=== PATIENT | female | born 1965 | race Two or more races ===

== ENCOUNTER 2020-10-12 17:32 | Inpatient (IN) | payer OTHER ==
[~2020-10-12] VITALS: Ht 160 cm; Wt 82.2 kg
--- NOTE | 2020-10-12 18:13 | PHYS DOC ---
Past Medical History Past Medical History: Arthritis, High Cholesterol Additional Past Medical Histor: bradycardia Past Surgical History: Hysterectomy, Pacemaker Additional Past Surgical Histo: partial hysterectomy Smoking Status: Never Smoker Alcohol Use: None Drug Use: None General Adult EDM: Chief Complaint: CHEST PAIN HPI: HPI: Patient is a 55 year old female who presents with last night began having first of breath with mid to left-sided chest pain that radiates through her back that is a sharp stabbing type pain that she rates at a 4 out of 10. She states her symptoms are worse when she is up and moving. She states that she also get the dizziness when she is up and moving. She states she has been taking aspirin 325 mg. She states yesterday she vomited. She states she also had cold sweats. She states that she just feels weak all over. She denies fever, abdominal pain, headache, syncope, fever, cough, numbness or tingling, focal weakness, vision changes. Review of Systems: Review of Systems: Constitutional: Denies fever or chills. [] Eyes: Denies change in visual acuity. [] HENT: Denies nasal congestion or sore throat. [] Respiratory: Denies cough. + shortness of breath. [] Cardiovascular: + Mid to left-sided chest pain or denies edema. [] GI: Denies abdominal pain. + nausea, +vomiting, denies bloody stools or diarrhea. [] : Denies dysuria. [] Musculoskeletal: Denies back pain or joint pain.+ Generalized weakness [] Integument: Denies rash. + Cold sweats [] Neurologic: + Dizziness, denies headache, focal weakness or sensory changes. [] Endocrine: Denies polyuria or polydipsia. [] Lymphatic: Denies swollen glands. [] Psychiatric: Denies depression or anxiety. [] Heart Score: HEART Score for Chest Pain: HEART Score for Chest Pain Response (Comments) Value History Slighlty/Non-Suspicious 0 ECG Nonspecific Repolarizatio 1 Age >45 - < 65 1 Risk Factors 1 or 2 Risk Factors 1 Troponin < Normal Limit 0 Total 3 Risk Factors: Risk Factors: DM, Current or recent (<one month) smoker, HTN, HLP, family history of CAD, obesity. Risk Scores: Score 0 - 3: 2.5% MACE over next 6 weeks - Discharge Home Score 4 - 6: 20.3% MACE over next 6 weeks - Admit for Clinical Observation Score 7 - 10: 72.7% MACE over next 6 weeks - Early Invasive Strategies Allergies: Allergies: Allergies Coded Allergies Type Severity Reaction Last Updated Verified No Known Drug Allergies 07/16/17 No Physical Exam: PE: Constitutional: Well developed, well nourished, no acute distress, non-toxic a ppearance. [] HENT: Normocephalic, atraumatic, bilateral external ears normal, oropharynx moist, no oral exudates, nose normal. [] Eyes: PERRLA, EOMI, conjunctiva normal, no discharge. [] Neck: Normal range of motion, no tenderness, supple, no stridor. [] Cardiovascular: Paced heart rate regular rhythm, no murmur [] Lungs & Thorax: Bilateral breath sounds clear to auscultation [] Abdomen: Bowel sounds normal, soft, no tenderness, no masses, no pulsatile masses. [] Skin: Warm, dry, no erythema, no rash. [] Back: No tenderness, no CVA tenderness. [] Extremities: No tenderness, no cyanosis, no clubbing, ROM intact, no edema. [] Neurologic: Alert and oriented X 3, normal motor function, normal sensory function, no focal deficits noted. [] Psychologic: Affect normal, judgement normal, mood normal. [] EKG: EK and read by Dr. Cesar as paced sinus rhythm and no STEMI. [address] Ashford as paced rhythm and no STEMI. Radiology/Procedures: Radiology/Procedures: [] Impression: [facility] [address] [place], [place] [id number] IMAGING REPORT Signed PATIENT: ESTHER HOYT ACCOUNT: [id number] : 1965 LOCATION: ER AGE: 55 SEX: F EXAM STATUS: REG ER ORD. PHYSICIAN: BERNIE GORMAN APRN REASON: CHEST PAIN PROCEDURE: PORTABLE CHEST 1V XR CHEST 1V Clinical History: Reason: CHEST PAIN / Spl. Instructions: / History: Technique: AP view of the chest was obtained at 10/12/2020 6:49 PM. Comparison: July 16, 2017. Findings: The cardiomediastinal silhouette is normal. The pulmonary vasculature is normal. The lungs and pleural margins are clear. There is left-sided dual-lead pacemaker. Impression: No evidence of an acute cardiopulmonary process. Electronically signed by: Bertha Palmer III, MD (10/12/2020 7:18 PM) [facility] DICTATED and SIGNED BY: BERTHA PALMER III, MD DATE: 10/12/20 [id number] [facility] [address] [place] [address] IMAGING REPORT Signed PATIENT: ESTHER HOYT ACCOUNT: [id number] : 1965 LOCATION: ER AGE: 55 SEX: F EXAM STATUS: REG ER ORD. PHYSICIAN: BERNIE GORMAN APRN REASON: ELEVATED LIVER ENZYMES, SEVERE MID AREA CHEST PAIN PROCEDURE: CT ABD PELV W/ IV CONTRST ONLY CT ABDOMEN+PELVIS W History: Reason: ELEVATED LIVER ENZYMES, SEVERE MID AREA CHEST PAIN / Spl. Instructions: OMNI 300 INJ 75 MLS / History: Comparison: None. Technique: After administration of intravenous contrast, helical CT of the abdomen and pelvis was performed from the lung bases through the ischial tuberosities. Coronal and sagittal reconstructions were obtained. 75 mL of Omnipaque 300 were used. One or more of the following dose reduction techniques were utilized: Automated exposure control (AEC), Adjustment of mA and/or kV according to patient size, Use of iterative reconstruction technique such as ASiR, CT scan done according to ALARA and image gently/image wisely Abdomen Findings: The visualized lung bases are clear. Hepatic steatosis. Cholelithiasis. Pancreas, spleen, and bilateral adrenal g lands are normal. Symmetric renal enhancement. There is no focal renal mass. There is no hydronephrosis. The visualized loops of small bowel are normal. Colonic diverticulosis. There is no evidence of bowel obstruction. Appendix is normal. There is no free fluid. There is no mesenteric or retroperitoneal adenopathy. The abdominal aorta is normal in caliber. Pelvis Findings: Urinary bladder is well-distended. Hysterectomy. No pelvic free fluid. There is no pelvic or inguinal adenopathy. Degenerative changes of the spine. IMPRESSION: 1. No acute findings. 2. Hepatic steatosis. 3. Cholelithiasis. Electronically signed by: Riaz Stokes MD (10/12/2020 7:57 PM) [facility] DICTATED and SIGNED BY: RIAZ STOKES MD DATE: 10/12/20 [id number] 0 Course & Med Decision Making: Course & Med Decision Making Pertinent Labs and Imaging studies reviewed. (See chart for details) See HPI. Alert and oriented x4. Ambulatory with steady gait. No extremity swelling. Skin pink warm and dry. Moving all extremities equally with equal strengths. PERRLA. No nystagmus. Abdomen is soft and nontender. Pain cannot be reproduced with movement or palpation. Left arm blood pressure is 135/82, right arm blood pressure is 134/99. CT shows cholelithiasis. I have ordered an ultrasound for the morning for gallbladder. Patient's troponin has went from 0.031 to 0.037. No changes on EKG. I have called Dr. Ochoa and patient is admitted to the hospital. [] Joie Disclaimer: Joie Disclaimer: This electronic medical record was generated, in whole or in part, using a voice recognition dictation system. Departure Departure Impression: Primary Impression: Chest pain Qualified Codes: R07.9 - Chest pain, unspecified Additional Impression: Cholelithiasis Qualified Codes: K80.20 - Calculus of gallbladder without cholecystitis without obstruction Disposition: 09 ADMITTED INPT THIS HOSP Admitting Physician: Riaz Ochoa Condition: STABLE Referrals: RIAZ OCHOA MD (PCP) Scripts No Active Prescriptions or Reported Meds BERNIE GORMAN RELIGIOUS EDUCATION TEACHER Oct 12, 2020 18:13
[2020-10-12 18:19] LABS: BASO # 0.1 x10^3/uL (0.0-0.2); BASO % 1 % (0-3); EOS # 0.1 x10^3/uL (0.0-0.7); EOS % 2 % (0-3); HEMOGLOBIN 13.4 g/dL (12.0-15.5); LYMPH # 3.4 x10^3/uL (1.0-4.8); LYMPH % 49 % (24-48); MEAN CORPUSCULAR HEMOGLOBIN 30 pg (25-35); MEAN CORPUSCULAR HGB CONC 34 g/dL (31-37); MEAN CORPUSCULAR VOLUME 90 fL (79-100); MONO # 0.5 x10^3/uL (0.0-1.1); MONO % 7 % (0-9); NEUT # 2.8 x10^3/uL (1.8-7.7); NEUT % 41 % (31-73); PLATELET COUNT 246 x10^3/uL (140-400); RED BLOOD COUNT 4.44 x10^6/uL (3.50-5.40); RED CELL DISTRIBUTION WIDTH 13.2 % (11.5-14.5); WHITE BLOOD COUNT 6.9 x10^3/uL (4.0-11.0)
[2020-10-12 18:28] LABS: CALCIUM 9.2 mg/dL (8.5-10.1); CREATININE 0.7 mg/dL (0.6-1.0); GFR 86.2; POTASSIUM 3.7 mmol/L (3.5-5.1)
[2020-10-12] MEDS ORDERED: NITROGLYCERIN SUBLINGUAL 0.4 MG BOTTLE OF 25. SL PRN (18:30)
[2020-10-12] MEDS ORDERED: IV NORMAL SALINE 1000ML BAG 1,000 ML IV ONE (18:30)
[2020-10-12] MEDS ORDERED: FAMOTIDINE 20 MG/2 ML VIAL IVP ONE (18:30)
[2020-10-12 18:34] LABS: ALBUMIN 3.9 g/dL (3.4-5.0); TOTAL BILIRUBIN 0.5 mg/dL (0.2-1.0); TOTAL PROTEIN 7.8 g/dL (6.4-8.2)
[2020-10-12] MEDS ORDERED: IOHEXOL 300 MG/ML 100ML VIAL. IV ONE (19:15)
--- NOTE | 2020-10-12 19:20 | RAD ---
XR CHEST 1V Clinical History: Reason: CHEST PAIN / Spl. Instructions: / History: Technique: AP view of the chest was obtained at 10/12/2020 6:49 PM. Comparison: July 16, 2017. Findings: The cardiomediastinal silhouette is normal. The pulmonary vasculature is normal. The lungs and pleura l margins are clear. There is left-sided dual-lead pacemaker. Impression: No evidence of an acute cardiopulmonary process. Electronically signed by: Tyler Corrales III, MD (10/12/2020 7:18 PM) [facility]
--- NOTE | 2020-10-12 20:00 | RAD ---
CT ABDOMEN+PELVIS W History: Reason: ELEVATED LIVER ENZYMES, SEVERE MID AREA CHEST PAIN / Spl. Instructions: OMNI 300 INJ 75 MLS / History: Comparison: None. Technique: After administration of intravenous contrast, helical CT of the abdomen and pelvis was per formed from the lung bases through the ischial tuberosities. Coronal and sagittal reconstructions wer e obtained. 75 mL of Omnipaque 300 were used. One or more of the following dose reduction techniques were utilized: Automated exposure control (AEC), Adjustment of mA and/or kV according to patient size , Use of iterative reconstruction technique such as ASiR, CT scan done according to ALARA and image g ently/image wisely Abdomen Findings: The visualized lung bases are clear. Hepatic steatosis. Cholelithiasis. Pancreas, spleen, and bilateral adrenal glands are normal. Symmetric renal enhancement. There is no focal renal mass. There is no hydronephrosis. The visualized loops of small bowel are normal. Colonic diverticulosis. There is no evidence of bowel obstruction. Appendix is normal. There is no free fluid. There is no mesenteric or retroperitoneal adenopathy. The abdominal aorta is normal in caliber. Pelvis Findings: Urinary bladder is well-distended. Hysterectomy. No pelvic free fluid. There is no pelvic or inguinal adenopathy. Degenerative changes of the spine. IMPRESSION: 1. No acute findings. 2. Hepatic steatosis. 3. Cholelithiasis. Electronically signed by: Mt Stokes MD (10/12/2020 7:57 PM) [facility]
[2020-10-12] MEDS ORDERED: ONDANSETRON PF 4 MG/2 ML VIAL. IV PRN (22:15)
[2020-10-12 23:58] VITALS: BP 122/83
--- NOTE | 2020-10-13 01:37 | EKG ---
[facility] [address] [place] [address] Test Date: 2020-10-12 Test Time: 17:45:43 Pat Name: ESTHER HOYT Department: Room: Gender: F Industrial Relations Officer: : 1965 Requested By: BERNIE GORMAN Order Number: [id number] Reading MD: Measurements Intervals [place] Rate: 75 P: RI: QRS: -64 QRSD: 184 T: 100 QT: 470 QTc: 528 Interpretive Statements IRREGULAR RHYTHM, NO P-WAVE FOUND ABNORMAL LEFT AXIS DEVIATION NON SPECIFIC INTRAVENTRICULAR BLOCK ABNORMAL ECG RI6.02 No previous ECG available for comparison
[2020-10-13 03:04] VITALS: BP 96/58
[2020-10-13 07:00] VITALS: BP_DIAS 72
--- NOTE | 2020-10-13 08:27 | RAD ---
Right upper quadrant ultrasound 10/13/2020 INDICATION: Right upper quadrant pain. Evaluate gallbladder. Abnormal CT. COMPARISON STUDY: CT abdomen and pelvis, yesterday FINDINGS: Pancreas partially visualized. Visualized pancreas is unremarkable. Visualized aorta and IV C are unremarkable. The liver is enlarged measuring 19 cm longitudinally. Liver demonstrates diffuse increase in echogenicity suggestive of hepatic steatosis. No focal hepatic lesions are identified by ultrasound. The common bile duct is mildly prominent measuring 6 mm in diameter. Right kidney is norm al in appearance measuring 12 cm longitudinally. There is a nonshadowing echogenic focus in the gallb ladder lumen which may represent a polyp common focal wall calcification, or small adherent stone. No pericholecystic fluid is seen. The gallbladder wall measurement was not obtained on provided imaging . Gallbladder wall appears to be nonthickened measuring approximately 2 to 3 mm per the radiologist. IMPRESSION: 1. Possible small adherent stone within the gallbladder lumen versus polyp. The former is favored g iven prior CT findings 2. No evidence of cholecystitis 3. Hepatomegaly and hepatic steatosis Electronically signed by: Sanket Morris MD (10/13/2020 8:25 AM) [id number]
--- NOTE | 2020-10-13 09:24 | PDOC2 ---
KEEGAN IRVIN MANUSCRIPTS ARCHIVIST 10/13/20 0924: CARDIAC CONSULT DATE OF CONSULT Date of Consult DATE: 10/13/20 TIME: 09:14 REASON FOR CONSULT Reason for Consult: chest pain REFERRING PHYSICIAN Referring Physician: Sophy SOURCE Source: Caregiver (granddaughter), Chart review, Patient HISTORY OF PRESENT ILLNESS HISTORY OF PRESENT ILLNESS This is a pleasant 55 yo female admitted for complains of chest pain and abdominal pain. Reports that she started having midsternal eduarda pain which was sharp in consistency which eventually disappears then transition to her left upper abdomen which she thinks she is probably constipated. Her CP has not recurred. Denies any SOA, palpitations. No nausea, vomiting. No prior covid exposure and no anosmia or ageusia. No recent falls or injury. No fever or chills or intractable coughing. Denies any passing out. She has a pacer transmitter but it is not plugged and last time her device was checked was 12/2019. She currently does not take any meds. Denies routine NSAID use. PAST MEDICAL HISTORY Cardiovascular: Hyperlipidemia, Other (SSS) Pulmonary: No pertinent hx Musculoskeletal: Osteoarthritis Rheumatologic: No pertinent hx Infectious disease: No pertinent hx ENT: No pertinent hx Renal/: No pertinent hx Endocrine: No pertinent hx Dermatology: No pertinent hx PAST SURGICAL HISTORY Past Surgical History: Pacemaker, Hysterectomy FAMILY HISTORY Family History: Hypertension SOCIAL HISTORY Smoke: No ALCOHOL: none Drugs: None CURRENT MEDICATIONS CURRENT MEDICATIONS Current Medications Medications (Trade) Dose Ordered Sig/Twin Route PRN Reason Start Time Stop Time Status Last Admin Dose Admin Sodium Chloride 1,000 ml @ 1,000 mls/hr 1X ONCE IV 10/12/20 18:30 10/12/20 19:29 DC 10/12/20 18:46 Nitroglycerin (Nitrostat) 0.4 mg PRN Q5MIN PRN SL CHEST PAIN 10/12/20 18:30 10/12/20 18:46 Famotidine (Pepcid Vial) 20 mg 1X ONCE IVP 10/12/20 18:30 10/12/20 18:33 DC 10/12/20 18:45 Iohexol (Omnipaque 300 Mg/ml) 75 ml 1X ONCE IV 10/12/20 19:15 10/12/20 19:16 DC 10/12/20 19:31 ALLERGIES ALLERGIES: Coded Allergies: No Known Drug Allergies (Unverified , 07/16/17) ROS Review of System 14 point ROS evaluated with pertinent positives noted per HPI PHYSICAL EXAM General: Alert, Oriented X3, Cooperative, No acute distress HEENT: Atraumatic, Mucous membr. moist/pink Lungs: Clear to auscultation, Normal air movement Heart: Regular rate (SR with intermittent V pacing ), Normal S1, Normal S2, Other (2/6 systolic murmur) Abdomen: Soft, No tenderness, Other (obese) Extremities: No cyanosis, No edema Skin: No breakdown, No significant lesion Neuro: Normal speech, Sensation intact Psych/Mental Status: Mental status NL, Mood NL MUSCULOSKELETAL: Osteoarthritic changes both hands VITALS/I&O VITALS/I&O: Vital Signs Date Time Temp Pulse Resp B/P (MAP) Pulse Ox O2 Delivery O2 Flow Rate FiO2 10/13/20 08:00 Room Air 10/13/20 03:04 98.2 64 16 96/58 (71) 100 98.2 I & O 10/12/20 10/12/20 10/13/20 15:00 23:00 07:00 Intake Total 520 ml Balance 520 ml LABS Lab: Laboratory Tests Test 10/12/20 17:56 10/12/20 20:35 10/13/20 00:30 White Blood Count 6.9 x10^3/uL (4.0-11.0) Red Blood Count 4.44 x10^6/uL (3.50-5.40) Hemoglobin 13.4 g/dL (12.0-15.5) Hematocrit 40.0 % (36.0-47.0) Mean Corpuscular Volume 90 fL (79-100) Mean Corpuscular Hemoglobin 30 pg (25-35) Mean Corpuscular Hemoglobin Concent 34 g/dL (31-37) Red Cell Distribution Width 13.2 % (11.5-14.5) Platelet Count 246 x10^3/uL (140-400) Neutrophils (%) (Auto) 41 % (31-73) Lymphocytes (%) (Auto) 49 % (24-48) H Monocytes (%) (Auto) 7 % (0-9) Eosinophils (%) (Auto) 2 % (0-3) Basophils (%) (Auto) 1 % (0-3) Neutrophils # (Auto) 2.8 x10^3/uL (1.8-7.7) Lymphocytes # (Auto) 3.4 x10^3/uL (1.0-4.8) Monocytes # (Auto) 0.5 x10^3/uL (0.0-1.1) Eosinophils # (Auto) 0.1 x10^3/uL (0.0-0.7) Basophils # (Auto) 0.1 x10^3/uL (0.0-0.2) Prothrombin Time 13.0 SEC (11.7-14.0) Prothrombin Time INR 1.0 (0.8-1.1) D-Dimer (Rosalva) 0.43 ug/mlFEU (0.00-0.50) Sodium Level 141 mmol/L (136-145) Potassium Level 3.7 mmol/L (3.5-5.1) Chloride Level 105 mmol/L (98-107) Carbon Dioxide Level 25 mmol/L (21-32) Anion Gap 11 (6-14) Blood Urea Nitrogen 14 mg/dL (7-20) Creatinine 0.7 mg/dL (0.6-1.0) Estimated GFR (Cockcroft-Gault) 86.2 BUN/Creatinine Ratio 20 (6-20) Glucose Level 119 mg/dL (70-99) H Calcium Level 9.2 mg/dL (8.5-10.1) Total Bilirubin 0.5 mg/dL (0.2-1.0) Aspartate Amino Transferase (AST) 170 U/L (15-37) H Alanine Aminotransferase (ALT) 203 U/L (14-59) H Alkaline Phosphatase 107 U/L (46-116) Troponin I Quantitative 0.031 ng/mL (0.000-0.055) 0.037 ng/mL (0.000-0.055) 0.035 ng/mL (0.000-0.055) PM-Htn-S-Type Natriuretic Peptide 722 pg/mL (0-124) H Total Protein 7.8 g/dL (6.4-8.2) Albumin 3.9 g/dL (3.4-5.0) Albumin/Globulin Ratio 1.0 (1.0-1.7) Lipase 118 U/L (73-393) Laboratory Tests 10/12/20 17:56 Laboratory Tests 10/12/20 17:56 ECHOCARDIOGRAM ECHOCARDIOGRAM <Conclusion> Left ventricle systolic function is low normal. The Ejection Fraction is 50%. Tissue Doppler imaging reveals mild left ventricular diastolic dysfunction. Transmitral Doppler flow pattern is Grade I-abnormal relaxation pattern. Doppler and Color Flow revealed trace aortic regurgitation. Mitral annular calcification is mild. Doppler and Color Flow revealed trace to mild tricuspid regurgitation. The PA pressure was estimated at 24 mmHg. Doppler and Color Flow revealed no pulmonic valvular regurgitation. There is no evidence of significant pericardial effusion. DATE: 07/18/171658 ASSESSMENT/PLAN ASSESSMENT/PLAN 1. Atypical chest pain: possibly from GI 2. SSS: intermittent V pacing, no prior device check per chart review. Medtr[employer] placed in 3. Cholelithiasis vs polyp 4. Left sided abdominal pain 5. Mild transaminitis with hepatic steatosis 6. HLP 7. Obesity 8. Metabolic syndrome 9. Subclinical hypothyroidism Recommendations TSH, lipids. A1C start statin. Dietitian consult Baseline TTE PPM is MITA, Generator change tomorrow. Discussed with pt and granddaughter, risks and benefits and agreeable to proceed. JASMYNE LÓPEZ MD 10/13/20 1903: CARDIAC CONSULT ASSESSMENT/PLAN ASSESSMENT/PLAN Patient seen and examined I agree with our nurse practitioners assessment and plan as above Atypical chest pain. No significant elevation in troponin. Continuing medical treatment. History of sick sinus syndrome with a [employer]tron[employer] pacemaker. Interrogation shows device is at [facility]A. We will plan generator change in the morning. Abdominal pain. Mildly improved. Work-up in progress. HLP. Obesity. Hypothyroidism. KEEGAN IRVIN APRN Oct 13, 2020 09:24 JASMYNE LÓPEZ MD Oct 13, 2020 19:03
[2020-10-13 09:50] LABS: CHOLESTEROL/HDL RATIO 4.4
[2020-10-13 11:00] VITALS: BP 113/66
[2020-10-13 15:00] VITALS: BP 132/50
--- NOTE | 2020-10-13 15:32 | NUR ---
SS following for discharge planning. SS reviewed pt chart and discussed with pt RN. Pt is from home and is currently on room air. COVID19 test pending. Pt having pacemaker replaced tomorrow. SS will continue to follow for discharge planning.
--- NOTE | 2020-10-13 17:20 | CARD ---
MR#: [id number] Date of Study: 10/13/2020 Ordering Physician: KEEGAN IRVIN, Referring Physician: KEEGAN IRVIN Tech: Belén Bob [facility] APPROVED REPORT EXAM: Two-dimensional and M-mode echocardiogram with Doppler and color Doppler. Other Information Quality : Good INDICATION Chest Pain SSS-Pacemaker 2D DIMENSIONS RVDd2.2 (2.9-3.5cm)Left Atrium(2D)3.3 (1.6-4.0cm) IVSd1.0 (0.7-1.1cm)Aortic Root(2D)2.9 (2.0-3.7cm) LVDd4.6 (3.9-5.9cm)LVOT Diameter2.2 (1.8-2.4cm) PWd1.1 (0.7-1.1cm)LVDs3.8 (2.5-4.0cm) FS (%) 18.4 %SV37.3 ml Aortic Valve AoV Peak Neptali.142.9cm/sAoV VTI20.6cm AO Peak GR.8.2mmHgLVOT Peak Neptali.87.9cm/s AO Mean GR.4mmHgAVA (VMAX)2.30cm2 ILIANA (VTI)2.44ps0HQ P 1/2 Syxm0260bu Tricuspid Valve TR P. [id number]/sRAP [id number] TR Peak Gr.70geHiQPAY05nlTl LEFT VENTRICLE The left ventricle is normal size. There is normal left ventricular wall thickness. The left ventricu lar systolic function is normal and the ejection fraction is within normal range. The Ejection Fracti on is 55-60%. Apical motion consistent with pacemaker activation. RIGHT VENTRICLE The right ventricle is normal size. The right ventricular systolic function is normal. There are alex ce leads in the right ventricle and atrium ATRIA The left atrium size is normal. The right atrium is mildly dilated. The interatrial septum is intact with no evidence for an atrial septal defect or patent foramen ovale as noted on 2-D or Doppler imagi ng. AORTIC VALVE The aortic valve is normal in structure and function. Doppler and Color Flow revealed trace to mild a ortic regurgitation. There is no significant aortic valvular stenosis. MITRAL VALVE The mitral valve is normal in structure and function. There is no evidence of mitral valve prolapse. There is no mitral valve stenosis. Doppler and Color-flow revealed trace mitral regurgitation. TRICUSPID VALVE The tricuspid valve is normal in structure and function. Doppler and Color Flow revealed mild tricusp id regurgitation. The PA pressure was estimated at 23 mmHg. There is no tricuspid valve stenosis. PULMONIC VALVE The pulmonic valve is not well visualized. Doppler and Color Flow revealed mild pulmonic valvular reg urgitation. There is no pulmonic valvular stenosis. GREAT VESSELS The aortic root is normal in size. The ascending aorta is normal in size. The IVC is normal in size a nd collapses >50% with inspiration. PERICARDIAL EFFUSION There is no evidence of significant pericardial effusion. Critical Notification Critical Value: No <Conclusion> The left ventricle is normal size. The left ventricular systolic function is normal and the ejection fraction is within normal range. The Ejection Fraction is 55-60%. Apical motion consistent with pacemaker activation. There are device leads in the right ventricle and atrium Doppler and Color Flow revealed trace to mild aortic regurgitation. There is no significant aortic valvular stenosis. Doppler and Color-flow revealed trace mitral regurgitation. Doppler and Color Flow revealed mild tricuspid regurgitation. The PA pressure was estimated at 23 mmHg. Signed by : Imtiza Mcqueen MD Electronically Approved : 10/13/2020 17:20:11
--- NOTE | 2020-10-13 17:44 | HP ---
ADMIT DATE: 10/13/2020 CHIEF COMPLAINT AND HISTORY OF PRESENT ILLNESS: This 55-year-old female presented to the office on the day of admission because of chest discomfort. She has 2 daughters present and the best description is that of a squeezing in the chest without any radiation. It was predominantly in the mid chest. It was worse when she would get up and walk around. It was associated with lightheadedness, sweatiness, and some mild shortness of breath. She does have a history of a pacemaker, but no other cardiac history. She was admitted for the same. She did have a CT scanning done in the Emergency Room, which showed cholelithiasis and hepatic steatosis. Troponin was elevated at 0.03 on admission in addition. PAST MEDICAL HISTORY: Remarkable for hyperlipidemia, bradycardia, arthritis. PAST SURGICAL HISTORY: Remarkable for hysterectomy and pacemaker. MEDICATIONS: None at the time of admission. ALLERGIES: She has no known drug allergies. SOCIAL HISTORY: She is a nonsmoker, nondrinker, does not use drugs. , lives at home with her . FAMILY HISTORY: Noncontributory. REVIEW OF SYSTEMS: As mentioned above. PHYSICAL EXAMINATION: GENERAL: She is a well-developed, well-nourished female, in no acute distress, very pleasant. VITAL SIGNS: Stable. She is afebrile. HEAD, EYES, EARS, NOSE AND THROAT: Unremarkable. NECK: Supple. No thyromegaly. CHEST: Clear to auscultation and percussion. HEART: Regular rate and rhythm without S3, S4 or murmur. ABDOMEN: Soft, nontender, without hepatosplenomegaly or masses. EXTREMITIES: Without cyanosis, clubbing, edema. NEUROLOGIC: She is intact. IMPRESSION: 1. Chest pain with mild elevation of troponin, rule out cardiac etiology. 2. Pacemaker, at end of life, on interrogation today, will need to be replaced. 3. Coincidental cholelithiasis and hepatic steatosis. PLAN: The patient has been admitted. Cardiology has been consulted and we will follow their lead as far as further investigation of the troponin and replacement of the pacemaker. RIAZ LAWSON MD DR: DENAE/akhil JOB#: [id number] / [id number]
[2020-10-13 19:50] VITALS: BP 127/59
[2020-10-13 19:51] LABS: BILIRUBIN,URINE NEGATIVE (NEG); CLARITY,URINE CLEAR; COLOR,URINE YELLOW; NITRITE,URINE NEGATIVE (NEG); PROTEIN,URINE NEGATIVE (NEG-TRACE); UROBILINOGEN,URINE 0.2 mg/dL (0.2 mg/dL)
[2020-10-13 19:57] LABS: BACTERIA,URINE 0 /HPF (0-FEW); RBC,URINE RARE /HPF (0-2)
[2020-10-13 19:58] LABS: AMPHETAMINE/METHAMPHETAMINE NEG (NEG); BARBITURATES NEG (NEG); BENZODIAZEPINES NEG (NEG); CANNABINOIDS NEG (NEG); COCAINE NEG (NEG); METHADONE NEG (NEG); OPIATES NEG (NEG); PHENCYCLIDINE NEG (NEG)
[2020-10-13] MEDS: ATORVASTATIN CALCIUM 20 MG TABLET PO SCH (21:41)
[2020-10-13 22:02] VITALS: BP 114/74
[2020-10-14] VITALS (14 sets, daily range): BP systolic 102–137; BP diastolic 67–91
[2020-10-14 03:39] LABS: HEMOGLOBIN A1C 5.6 % (4.8-5.6)
[2020-10-14] MEDS ORDERED: MIDAZOLAM HCL/PF 2 MG/2 ML VIAL. ONE (10:34)
[2020-10-14] MEDS ORDERED: fentaNYL PF VIAL 100 MCG/2 ML VIAL ONE (10:34)
[2020-10-14] MEDS ORDERED: LIDOCAINE 2%/EPI 1:100,000 20 ML VIAL. ONE (10:44)
[2020-10-14] MEDS ORDERED: BACITRACIN 50,000 UNIT in IV NORMAL SALINE 250ML 250 ML IRR ONE (10:45)
--- NOTE | 2020-10-14 10:49 | NUR ---
pt left for procedure at approx 1030.
--- NOTE | 2020-10-14 11:11 | PDOC ---
MODERATE SEDATION ASSESSMENT RISKS/ALTERNATIVES Risks/Alternatives Risks and alternatives of this type of sedation and procedure discussed with: RISK/ALTERNATIVES: Patient H & P ON CHART H & P H & P on chart and reviewed for co-morbid conditions and appropriate labs. H&P ON CHART: Yes STATUS PREG STATUS ASSESSED: N/A MEDS/ALLERGIES REVIEWED Meds/Allergies Reviewed Medications and Allergies including time and route of recently administered narcotics and sedatives. MEDS/ALLERGIES REVIEWED: Yes ASA RATING ASA RATING: II AIRWAY ASSESSMENT Airway Assessment Airway patency, oral function limitations, presence of caps, crowns, dentures, partials, and ability to extend neck assessed. AIRWAY ASSESSMENT: Yes MALLAMPATI SCORE MALLAMPATI SCORE: II PRE-SEDATION ASSESSMENT PRE-SEDATION ASSESSMENT: Yes WOODY BRYANT MD Oct 14, 2020 11:11
[2020-10-14] MEDS ORDERED: LIDOCAINE 2%/EPI 1:100,000 20 ML VIAL. IJ ONE (11:30)
[2020-10-14] MEDS ORDERED: fentaNYL PF VIAL 100 MCG/2 ML VIAL IV ONE (11:30)
[2020-10-14] MEDS ORDERED: MIDAZOLAM HCL/PF 2 MG/2 ML VIAL. IV ONE (11:30)
--- NOTE | 2020-10-14 13:19 | PN ---
DATE: 10/14/2020 SUBJECTIVE: This 55-year-old female remains hospitalized with chest pain and end of life pacemaker found by interrogation. She has had no further symptoms since admission. Daughters are present at the bedside. OBJECTIVE: VITAL SIGNS: Stable. She is afebrile. CHEST: Clear. HEART: Regular. ABDOMEN: Benign. NEUROLOGIC: She is awake and alert. LABORATORY DATA: TSH is mildly elevated and will need to be followed up as an outpatient. IMPRESSION: Chest pain, pacemaker end of life, elevated troponin, subclinical hypothyroidism and hyperlipidemia. PLAN: Await pacemaker replacement with further plans to follow per Cardiology. RIAZ LAWSON MD DR: DENAE/akhil JOB#: [id number] / [id number]
--- NOTE | 2020-10-14 14:10 | NUR ---
SS following up with discharge planning. SS reviewed pt chart and discussed with pt RN. Pt is currently on room air. Pt having pacemaker replaced today. Discharge plan is to home when medically ready. SS will continue to follow for discharge planning.
--- NOTE | 2020-10-14 19:37 | NUR ---
PT RETURNED FROM PROCEDURE AT APPROX 1200. DRESSING CLEAN DRY AND INTACT. PT DENIES PAIN AT THIS TIME. FREQUENTS SET UP AND CHARTED.
[2020-10-14] MEDS: ATORVASTATIN CALCIUM 20 MG TABLET PO SCH (20:54)
[2020-10-15 03:15] VITALS: BP 134/79
[2020-10-15 07:28] VITALS: BP 129/82
[2020-10-15] MEDS: ACETAMINOPHEN 325 MG TABLET. PO PRN ×2 (08:17→18:26)
[2020-10-15 11:00] VITALS: BP 126/79
--- NOTE | 2020-10-15 14:09 | PDOC ---
Provider Note Date of Service: DATE: 10/15/20 TIME: 14:12 Provider Note vss, feels ok- note elevated TAs so will repeayt, ? etiology- no new meds Justifications for Admission Other Justification WILDER MURRY MD Oct 15, 2020 14:09
[2020-10-15 15:04] VITALS: BP 122/74
[2020-10-15 19:40] VITALS: BP 125/83
[2020-10-15] MEDS: ATORVASTATIN CALCIUM 20 MG TABLET PO SCH (21:58)
--- NOTE | 2020-10-15 23:04 | PDOC ---
Provider Note Date of Service: DATE: 10/15/20 TIME: 23:02 Provider Note S: No events overnight. O: Left pacer site is c/d/i no edema. normal heart tones. Meds reviewed. diagnostic tests reviewed. Impression: 1. Pacemaker MITA - successful gen change Recs: 1. F/u in 2 weeks for wound check in office, otherwise, no further CV recs. Pls call with questions. Thanks Justifications for Admission Other Justification JAE KIRBY MD Oct 15, 2020 23:04
[2020-10-15 23:19] VITALS: BP 133/81
[2020-10-16 03:47] VITALS: BP 117/79
[2020-10-16 07:00] VITALS: BP 140/87
[2020-10-16 08:52] LABS: ALBUMIN 3.8 g/dL (3.4-5.0); DIRECT BILIRUBIN 0.1 mg/dL (0.0-0.2); TOTAL BILIRUBIN 0.6 mg/dL (0.2-1.0); TOTAL PROTEIN 7.9 g/dL (6.4-8.2)
--- NOTE | 2020-10-16 09:18 | PDOC ---
Provider Note Date of Service: DATE: 10/16/20 TIME: 09:21 Provider Note [id number] Justifications for Admission Other Justification WILDER MURRY MD Oct 16, 2020 09:18
--- NOTE | 2020-10-16 09:43 | DS ---
DATE OF DISCHARGE: 10/16/2020 HOSPITAL SUMMARY: A 55-year-old female who has a history of a pacemaker and came in with some vaguely described chest pain. CBC was normal. Chemistry profile showed hemoglobin A1c 5.6. AST and ALT are elevated at 170 and 203 with bilirubin of normal. TSH mildly elevated at 6.9, but free T4 normal at 0.92. Cholesterol was 215, LDL 139, HDL 49, and triglycerides normal at 133. Repeat liver function tests showed an AST of 31 and ALT of 84 and showed the improvement. Chest x-ray was clear. CT scan showed evidence of fatty liver and gallstones on the CT, but the sonogram did not clinically support evidence of gallstones with fatty liver being present with the mildly enlarged liver as well. She had a pacemaker evaluation and had to have generator change done per Dr. Harris which was accomplished uneventfully. Vital signs are stable. She is feeling better and able to be followed as an outpatient. FINAL DIAGNOSES: 1. Pacemaker generator failure, improved. 2. Mild transaminitis, resolved. 3. Radiologic evidence of fatty liver. 4. Subclinical hypothyroidism. OPERATIONS AND PROCEDURES: Pacemaker generator change. COMPLICATIONS: None. CONSULTATIONS: Dr. Harris and Dr. Love. DISPOSITION AND DISCHARGE INSTRUCTIONS: No medications were added. Statin was not started as weight loss and dietary changes best treatment for her fatty liver disease and lipids are not particularly severely elevated. She will discuss the use of statins with Dr. Ochoa in the office. Subclinical hypothyroidism needs to be followed with a TSH in probably 6 months. Cardiac diet was discussed. PROGNOSIS: Good. WILDER MURRY MD DR: JESSIAC/akhil JOB#: [id number] / [id number]
[2020-10-16 10:57] VITALS: BP 146/88
--- NOTE | 2020-10-16 12:00 | NUR ---
Discharge: Teaching verbal and written. Discharge instructions printed in [place] in [place]ian. Patients daughter translated the verbal discharge instructions. No medications. Reviewed pacemaker battery change, wound care instructions, follow-up, ect. Medtronic box with patient at time of discharge. IV removed without complications, catheter tip in-tact. All belongings with patient. Patient ambulated off of unit with daughter and nurse.
--- NOTE | 2020-10-18 10:15 | CARD ---
MR#: [id number] Date of Study: 10/14/2020 Ordering Physician: KEEGAN IRVIN, Referring Physician: KEEGAN IRVIN, Tech: APPROVED REPORT PROCEDURES Successful Medtronic dual-chamber permanent pacemaker generator change FL TIME: 0.0 MINS DOSE: 1.23 GYCM2 MODERATE SEDATION: 30 MIN BLOOD LOSS: 5 ml INDICATIONS Sick sinus syndrome s/p permanent pacemaker implantation presenting with battery depletion IMPLANTED DEVICES After explaining the risk, benefits and alternative options, informed consent was obtained for scott t. Patient was brought to the cardiac [facility]cher and her left chest and shoulder were prepped and drap ed in the usual fashion. 30 cc of 2% lidocaine was infiltrated into the skin and subcutaneous tissue s for local anesthesia. An incision was made over the previous scar and using blunt dissection and c autery the pocket was opened, the capsule exposed and opened and the previously placed generator justice kwame from the pocket. The leads were detached, interrogated, found to be functioning well and very at tached to a Medtronic dual-chamber permanent pacemaker generator model W3 DR 01 serial number [id number]. This was placed in the pocket that was subsequently closed in 3 layers. Hemostasis was secure d. Patient tolerated the procedure well. There were no immediate complications. CONCLUSION Successful Medtronic dual-chamber permanent pacemaker generator change in a patient with sick sinus s yndrome Signed by : Alejandro Harris, Electronically Approved : 10/14/2020 11:55:50
--- NOTE | 2021-01-27 15:28 | PDOC1 ---
History & Physical: Date of Service: DOS: 10-13-2020 H&P: PATIENT: ESTHER HOYT ACCOUNT: [id number] : 1965 LOC: [address] [place] [address] AGE: 55 SEX: F STATUS: ADM IN LOCATION: [address] [place] [address] ADMIT DATE: 10/13/2020 CHIEF COMPLAINT AND HISTORY OF PRESENT ILLNESS: This 55-year-old female presented to the office on the day of admission because of chest discomfort. She has 2 daughters present and the best description is that of a squeezing in the chest without any radiation. It was predominantly in the mid chest. It was worse when she would get up and walk around. It was associated with lightheadedness, sweatiness, and some mild shortness of breath. She does have a history of a pacemaker, but no other cardiac history. She was admitted for the same. She did have a CT scanning done in the Emergency Room, which showed cholelithiasis and hepatic steatosis. Troponin was elevated at 0.03 on admission in addition. PAST MEDICAL HISTORY: Remarkable for hyperlipidemia, bradycardia, arthritis. PAST SURGICAL HISTORY: Remarkable for hysterectomy and pacemaker. MEDICATIONS: None at the time of admission. ALLERGIES: She has no known drug allergies. SOCIAL HISTORY: She is a nonsmoker, nondrinker, does not use drugs. , lives at home with her . FAMILY HISTORY: Noncontributory. REVIEW OF SYSTEMS: As mentioned above. PHYSICAL EXAMINATION: GENERAL: She is a well-developed, well-nourished female, in no acute distress, very pleasant. VITAL SIGNS: Stable. She is afebrile. HEAD, EYES, EARS, NOSE AND THROAT: Unremarkable. NECK: Supple. No thyromegaly. CHEST: Clear to auscultation and percussion. HEART: Regular rate and rhythm without S3, S4 or murmur. ABDOMEN: Soft, nontender, without hepatosplenomegaly or masses. EXTREMITIES: Without cyanosis, clubbing, edema. NEUROLOGIC: She is intact. IMPRESSION: 1. Chest pain with mild elevation of troponin, rule out cardiac etiology. 2. Pacemaker, at end of life, on interrogation today, will need to be replaced. 3. Coincidental cholelithiasis and hepatic steatosis. PLAN: The patient has been admitted. Cardiology has been consulted and we will follow their lead as far as further investigation of the troponin and replacement of the pacemaker. RIAZ Cardenas. MD RENNY DR: DENAE/akhil JOB#: [id number] / [id number] DICTATED BY: RIAZ LAWSON MD 10/13/20 1651 SIGNED BY: RIAZ LAWSON MD 10/15/20 1131 cc: RIAZ LAWSON MD ~[id number] Page of RIAZ LAWSON MD Jan 27, 2021 15:28
== END 2020-10-16 11:55 | disposition home or self-care (01) | DRG 259 ==
LOC: ER 17:32 → 2 SOUTH 21:51
PROVIDERS: ADMIT Family Medicine; ATTEND Family Medicine
PROC: 4B02XSZ Measurement of Cardiac Pacemaker, External Approach (ICD-10-PCS; principal; 2020-10-12)
PROC: 0JH606Z Insertion of Pacemaker, Dual Chamber into Chest Subcutaneous Tissue and Fascia, Open Approach (ICD-10-PCS; 2020-10-14)
PROC: 0JPT0PZ Removal of Cardiac Rhythm Related Device from Trunk Subcutaneous Tissue and Fascia, Open Approach (ICD-10-PCS; 2020-10-14)
DX: T82.191A Other mechanical complication of cardiac pulse generator (battery), initial encounter (principal); K80.20 Calculus of gallbladder without cholecystitis without obstruction; I49.5 Sick sinus syndrome; E03.9 Hypothyroidism, unspecified; E66.9 Obesity, unspecified; E78.00 Pure hypercholesterolemia, unspecified; E78.5 Hyperlipidemia, unspecified; E88.81 Metabolic syndrome and other insulin resistance; K59.00 Constipation, unspecified; K76.0 Fatty (change of) liver, not elsewhere classified; Y71.2 Prosthetic and other implants, materials and accessory cardiovascular devices associated with adverse incidents; Z82.49 Family history of ischemic heart disease and other diseases of the circulatory system; Z90.711 Acquired absence of uterus with remaining cervical stump; Z95.0 Presence of cardiac pacemaker; M19.90 Unspecified osteoarthritis, unspecified site; R07.89 Other chest pain; Z68.32 Body mass index [BMI] 32.0-32.9, adult; Z20.822 Contact with and (suspected) exposure to COVID-19
CPT/HCPCS: 33213; 36415; 71045; 74177; 76705; 80053; 80061; 80076; 80307; 81001; 83036; 83690; 83880; 84439; 84443; 84484; 85025; 85379; 85610; 87086; 87426; 93005; 93306; 96361; 96374; 99152; 99153; C1785; J0690; J2250; J3010; J3490; J7030; J7050; Q9967; U0003; 99285-25; G0378